=== PATIENT | female | born 1970 | race Caucasian/White ===

== ENCOUNTER 2018-08-06 14:20 | Emergency (ER) | payer OTHER ==
[~2018-08-06] VITALS: Ht 154.9 cm; Wt 68.0 kg
[~2018-08-06 14:20] MED LIST: AMOXICILLIN500 MG PO; FIORICET 325 MG1 TAB PO; LIDEX0.05% T; MEDROL DOSEPAK4 MG PO; NKHM; PREDNISONE20 MG PO; ZANTAC 150150 MG PO
[2018-08-06] MEDS ORDERED: Motrin,Rufen800 MG PO (15:51)
[2018-08-06] MEDS ORDERED: CYCLOBENZAPRINE5 M3 PO (15:51)
[2018-08-06] MEDS ORDERED: MEDROL DOSEPAK4 MG PO (15:51)
== END 2018-08-06 16:05 | disposition home or self-care (01) ==
LOC: ED 14:20
DX: M54.16 Radiculopathy, lumbar region (principal); F17.200 Nicotine dependence, unspecified, uncomplicated

== ENCOUNTER → 2019-11-26 | Outpatient (CLI) | payer SELFPAY ==
[~2019-11-26] MED LIST changes: +CYCLOBENZAPRINE5 M3 PO; +Motrin,Rufen800 MG PO
== END | disposition home or self-care (01) ==
LOC: US 16:07
DX: M79.605 Pain in left leg (principal)

== ENCOUNTER → 2019-12-15 | Outpatient (CLI) | payer SELFPAY | END | disposition home or self-care (01) | LOC: RAD 14:06 | DX: M54.42 Lumbago with sciatica, left side (principal) ==

== ENCOUNTER 2021-02-02 17:02 | Emergency (ER) | payer OTHER ==
[~2021-02-02] VITALS: Ht 154.9 cm; Wt 62.6 kg
[2021-02-02] MEDS ORDERED: MEDROL DOSEPAK4 MG PO (18:42)
== END 2021-02-02 18:38 | disposition home or self-care (01) ==
LOC: ED 17:02
DX: S46.912A Strain of unspecified muscle, fascia and tendon at shoulder and upper arm level, left arm, initial encounter (principal); Z79.899 Other long term (current) drug therapy; X58.XXXA Exposure to other specified factors, initial encounter; Y93.89 Activity, other specified; Y92.89 Other specified places as the place of occurrence of the external cause; Y99.8 Other external cause status

== ENCOUNTER 2023-05-16 17:36 | Inpatient (IN) | payer SELFPAY ==
[~2023-05-16] VITALS: Ht 154.9 cm; Wt 59.2 kg
[2023-05-16 17:43] VITALS: BP 150/118
[2023-05-16 18:33] LABS: BASO % 0.2 % (0.0-1.0); EOS % 0.1 % (1.0-4.0); HEMATOCRIT 49.6 % (37.0-47.0); LYMPH # 1.7 10*3/uL (1.3-4.4); MEAN CELL VOLUME 105.3 fl (81.0-99.0); MEAN CORPUSCULAR HGB 37.2 pg (27.0-31.0); MEAN CORPUSCULAR HGB CONC 35.3 g/dl (33.0-37.0); MEAN PLATELET VOLUME 8.8 fl (9.6-12.3); MONO % 7.1 % (3.0-9.0); NEUT # 11.3 10*3/uL (2.3-7.9); NEUT % 80.2 % (47.0-73.0); PLATELET COUNT AUTOMATED 396 10*3/uL (130-400); RED BLOOD COUNT 4.71 10*6/uL (4.10-5.10); RED CELL DISTRI WIDTH 12.9 % (0-14.5); WHITE BLOOD COUNT 14.1 10*3/uL (4.8-10.8)
[2023-05-16 18:56] LABS: ALKALINE PHOSPHATASE 87 U/L (46-116); BUN 6 mg/dl (9-23); CHLORIDE 100 mmol/L (98-107); LIPASE 24 U/L (12-53); POTASSIUM 3.6 mmol/L (3.4-5.1); SGPT/ALT 10 U/L (10-49); TOTAL PROTEIN 6.8 gm/dL (6.0-8.0)
[2023-05-16 20:16] LABS: BILIRUBIN 1+ (Negative); BLOOD 2+ (Negative); CLARITY Cloudy (Clear); COLOR Orange (Yellow); GLUCOSE Negative (Negative); KETONE Trace (Negative); LEUKO ESTERASE Trace (Negative); NITRITE Negative (Negative); SPECIFIC GRAVITY >= 1.030 (1.001-1.030)
[2023-05-16 20:26] LABS: BACTERIA 1+
[2023-05-17] VITALS (12 sets, daily range): BP systolic 100–150; BP diastolic 62–84
[2023-05-17 05:25] LABS: ACT PARTIAL THROMBO TIME 29.5 SECONDS (20.0-32.1)
[2023-05-17 05:39] LABS: CHLORIDE 101 mmol/L (98-107); CHOLESTEROL 150 mg/dL (<200); FREE T4 0.83 ng/dl (0.89-1.76); LDL CHOLESTEROL 92 mg/dL (9-159); POTASSIUM 3.7 mmol/L (3.4-5.1); TRIGLYCERIDES 106 mg/dl (<150)
[2023-05-17 06:00] LABS: BUN < 5 mg/dl (9-23)
[2023-05-17 06:15] LABS: BASO % 0.2 % (0.0-1.0); EOS # 0.1 10*3/uL (0.0-0.4); EOS % 0.5 % (1.0-4.0); LYMPH # 2.6 10*3/uL (1.3-4.4); LYMPH % 18.4 % (27.0-41.0); MEAN CELL VOLUME 106.7 fl (81.0-99.0); MEAN CORPUSCULAR HGB 37.1 pg (27.0-31.0); MEAN CORPUSCULAR HGB CONC 34.8 g/dl (33.0-37.0); MEAN PLATELET VOLUME 9.3 fl (9.6-12.3); MONO # 1.3 10*3/uL (0.1-1.0); MONO % 9.3 % (3.0-9.0); NEUT % 71.2 % (47.0-73.0); PLATELET COUNT AUTOMATED 386 10*3/uL (130-400)
[2023-05-17 06:57] LABS: VITAMIN D, 25-HYDROXY 47.7 ng/mL (30-100)
[2023-05-18] VITALS: BP 135/69
[2023-05-18 08:00] VITALS: BP 133/72
[2023-05-18 10:07] LABS: HEMATOCRIT 43.5 % (37.0-47.0); MEAN CELL VOLUME 105.6 fl (81.0-99.0); MEAN CORPUSCULAR HGB 37.1 pg (27.0-31.0); MEAN CORPUSCULAR HGB CONC 35.2 g/dl (33.0-37.0); MEAN PLATELET VOLUME 8.9 fl (9.6-12.3); PLATELET COUNT AUTOMATED 361 10*3/uL (130-400); RED BLOOD COUNT 4.12 10*6/uL (4.10-5.10); WHITE BLOOD COUNT 16.9 10*3/uL (4.8-10.8)
[2023-05-18 10:18] LABS: MANUAL DIFF REFLEX YES
[2023-05-18 10:35] LABS: TOTAL CELLS COUNTED 100 #CELLS
[2023-05-18 10:36] LABS: PLATELET SUFFICIENCY NORMAL (NORMAL)
[2023-05-18 11:07] LABS: ALKALINE PHOSPHATASE 65 U/L (46-116); BUN 6 mg/dl (9-23); CHLORIDE 102 mmol/L (98-107); POTASSIUM 3.6 mmol/L (3.4-5.1); SGPT/ALT 11 U/L (10-49)
[2023-05-18 12:00] VITALS: BP 129/70
[2023-05-18 16:00] VITALS: BP 124/57
[2023-05-18 20:00] VITALS: BP 148/74
[2023-05-19] VITALS: BP 153/80
[2023-05-19 05:07] LABS: ALKALINE PHOSPHATASE 64 U/L (46-116); CHLORIDE 102 mmol/L (98-107); POTASSIUM 3.6 mmol/L (3.4-5.1); SGPT/ALT 8 U/L (10-49); TOTAL PROTEIN 5.5 gm/dL (6.0-8.0)
[2023-05-19 05:09] LABS: BUN < 5 mg/dl (9-23)
[2023-05-19 06:15] LABS: HEMATOCRIT 39.7 % (37.0-47.0); MEAN CORPUSCULAR HGB 36.5 pg (27.0-31.0); MEAN CORPUSCULAR HGB CONC 34.8 g/dl (33.0-37.0); MEAN PLATELET VOLUME 9.4 fl (9.6-12.3); PLATELET COUNT AUTOMATED 365 10*3/uL (130-400); RED BLOOD COUNT 3.78 10*6/uL (4.10-5.10); RED CELL DISTRI WIDTH 12.9 % (0-14.5); WHITE BLOOD COUNT 13.7 10*3/uL (4.8-10.8)
[2023-05-19 06:16] LABS: MANUAL DIFF REFLEX YES
[2023-05-19 06:58] LABS: TOTAL CELLS COUNTED 100 #CELLS
[2023-05-19 07:04] LABS: BURR CELLS FEW; PLATELET SUFFICIENCY NORMAL (NORMAL); POLYCHROMASIA SLIGHT
[2023-05-19 07:05] LABS: ROULEAUX SLIGHT; TOXIC GRANULATION SLIGHT
[2023-05-19 08:00] VITALS: BP 146/67
[2023-05-19 12:00] VITALS: BP 122/69; BP 155/83
[2023-05-19 16:00] VITALS: BP 131/62
[2023-05-19 20:00] VITALS: BP 143/66
[2023-05-20] VITALS: BP 151/83
[2023-05-20 08:00] VITALS: BP 132/64
[2023-05-20 12:00] VITALS: BP 142/82
[2023-05-20 16:00] VITALS: BP 135/82
[2023-05-20 20:00] VITALS: BP 144/80
[2023-05-21] VITALS: BP 146/83
[2023-05-21 06:18] LABS: BASO # 0.1 10*3/uL (0.0-0.1); BASO % 0.5 % (0.0-1.0); EOS # 0.5 10*3/uL (0.0-0.4); EOS % 4.8 % (1.0-4.0); HEMATOCRIT 41.6 % (37.0-47.0); LYMPH # 2.1 10*3/uL (1.3-4.4); LYMPH % 20.8 % (27.0-41.0); MEAN CELL VOLUME 103.5 fl (81.0-99.0); MEAN CORPUSCULAR HGB 36.1 pg (27.0-31.0); MEAN CORPUSCULAR HGB CONC 34.9 g/dl (33.0-37.0); MEAN PLATELET VOLUME 9.2 fl (9.6-12.3); MONO # 1.1 10*3/uL (0.1-1.0); MONO % 11.4 % (3.0-9.0); NEUT # 6.2 10*3/uL (2.3-7.9); NEUT % 62.1 % (47.0-73.0); PLATELET COUNT AUTOMATED 430 10*3/uL (130-400); RED BLOOD COUNT 4.02 10*6/uL (4.10-5.10); RED CELL DISTRI WIDTH 12.4 % (0-14.5)
[2023-05-21 08:00] VITALS: BP 133/73
[2023-05-21 12:00] VITALS: BP 123/68
[2023-05-21 16:00] VITALS: BP 123/72
[2023-05-21 20:00] VITALS: BP 159/75
[2023-05-22] VITALS: BP 143/78
[2023-05-22 08:00] VITALS: BP 134/79
[2023-05-22 16:00] VITALS: BP 144/70
[2023-05-22 20:00] VITALS: BP 156/79
[2023-05-23] VITALS: BP 137/77
[2023-05-23 08:00] VITALS: BP 135/83
[2023-05-23 12:00] VITALS: BP 140/81
[2023-05-23 16:00] VITALS: BP 144/75
[2023-05-23 20:15] VITALS: BP 159/73
[2023-05-24] VITALS: BP 150/74
[2023-05-24 06:11] LABS: BASO # 0.1 10*3/uL (0.0-0.1); BASO % 0.7 % (0.0-1.0); EOS # 0.4 10*3/uL (0.0-0.4); EOS % 2.9 % (1.0-4.0); HEMATOCRIT 42.5 % (37.0-47.0); MEAN CELL VOLUME 105.5 fl (81.0-99.0); MEAN CORPUSCULAR HGB 36.2 pg (27.0-31.0); MEAN CORPUSCULAR HGB CONC 34.4 g/dl (33.0-37.0); MEAN PLATELET VOLUME 9.1 fl (9.6-12.3); MONO # 1.4 10*3/uL (0.1-1.0); MONO % 10.3 % (3.0-9.0); NEUT # 9.4 10*3/uL (2.3-7.9); NEUT % 70.7 % (47.0-73.0); PLATELET COUNT AUTOMATED 532 10*3/uL (130-400); RED BLOOD COUNT 4.03 10*6/uL (4.10-5.10); RED CELL DISTRI WIDTH 12.4 % (0-14.5); WHITE BLOOD COUNT 13.4 10*3/uL (4.8-10.8)
[2023-05-24 06:58] LABS: BUN 5 mg/dl (9-23); CHLORIDE 103 mmol/L (98-107)
[2023-05-24 08:00] VITALS: BP 150/84
[2023-05-24 12:00] VITALS: BP 125/64; BP 145/80
[2023-05-24 16:00] VITALS: BP 140/78
[2023-05-24 20:00] VITALS: BP 141/76
[2023-05-25] VITALS: BP 143/78
[2023-05-25 08:00] VITALS: BP 115/78
[2023-05-25] MEDS ORDERED: METAMUCIL FIBE3.4 GM PO (12:03)
[2023-05-25] MEDS ORDERED: HYDROCODONE-AC1 EAC1 PO (12:03)
[2023-05-25 13:00] VITALS: BP 121/64
== END 2023-05-25 17:42 | disposition home or self-care (01) | DRG 853 ==
LOC: ED 17:36 → 4E 05-17 02:59 → EDHOLD 05-17 02:59 → 4E 05-17 03:33
PROVIDERS: Family Medicine; Internal Medicine; Registered Nurse; ADMIT Internal Medicine; ATTEND Internal Medicine
PROC: 0D9670Z Drainage of Stomach with Drainage Device, Via Natural or Artificial Opening (ICD-10-PCS; principal; 2023-05-17)
PROC: 0DBN0ZZ Excision of Sigmoid Colon, Open Approach (ICD-10-PCS; 2023-05-17)
PROC: 0DJD4ZZ Inspection of Lower Intestinal Tract, Percutaneous Endoscopic Approach (ICD-10-PCS; 2023-05-17)
PROC: 3E0T3BZ Introduction of Anesthetic Agent into Peripheral Nerves and Plexi, Percutaneous Approach (ICD-10-PCS; 2023-05-17)
PROC: 3E0T33Z Introduction of Anti-inflammatory into Peripheral Nerves and Plexi, Percutaneous Approach (ICD-10-PCS; 2023-05-17)
DX: A41.9 Sepsis, unspecified organism (principal); E43 Unspecified severe protein-calorie malnutrition; K56.600 Partial intestinal obstruction, unspecified as to cause; K57.32 Diverticulitis of large intestine without perforation or abscess without bleeding; E86.0 Dehydration; K21.9 Gastro-esophageal reflux disease without esophagitis; D75.1 Secondary polycythemia; D75.89 Other specified diseases of blood and blood-forming organs; R73.9 Hyperglycemia, unspecified; R31.29 Other microscopic hematuria; F17.210 Nicotine dependence, cigarettes, uncomplicated; D53.9 Nutritional anemia, unspecified; Z98.891 History of uterine scar from previous surgery; Z68.24 Body mass index [BMI] 24.0-24.9, adult

== ENCOUNTER → 2023-08-09 | Outpatient (CLI) | payer OTHER ==
[~2023-08-09] MED LIST changes: +HYDROCODONE-AC1 EAC1 PO; +METAMUCIL FIBE3.4 GM PO
== END | disposition home or self-care (01) ==
LOC: RAD 14:20
PROVIDERS: ATTEND Nurse Practitioner Family
DX: M54.42 Lumbago with sciatica, left side (principal); R20.0 Anesthesia of skin; M79.605 Pain in left leg